=== PATIENT | female | born 1950 | race Caucasian/White ===

== ENCOUNTER → 2018-09-13 06:31 | Outpatient (CLI) | payer MEDICARE, SELFPAY ==
--- NOTE | 2018-09-13 06:35 | CA_ITS ---
PROCEDURE: 2-D M-mode and color Doppler study INDICATIONS FOR THE TEST: Chest pain COPD Heart Murmur Tobacco SmokingEX Palpitations Fatigue Syncope Edema HypertensionXDiabetes Mellitus Rheumatic Fever SOB ALEX Obesity HyperlipidemiaX Family History HD Additional History CAD,LVH PATIENT INFORMATION HEIGHT: 62 WEIGHT:167 GENDER: Female B/P:144/81 2-D/M-MODE INTERPRETATION: 2-D MEASUREMENTS OBSERVED VALUES IN CMS Right Ventricular Dimension (RVDd) 1.3 Interventricular Septum (Thickness)(IVsd) 1.0 Left Ventricular Internal Dimensions(LVIDd) 5.0 Left Ventricular Posterior Wall (Thickness)(LVPWd) .9 Aortic Root 2.5 Aortic Cusp Separation 1.4 Left Atrial Dimensions (LAD) 3.6 2D 1. The left atrium is mildly enlarged, left ventricle is normal size, mild concentric left ventricular hypertrophy, visually estimated ejection fraction 55% with no regional wall motion abnormality. 2. The right atrium and right ventricle are normal size and contractility. 3. The aortic valve is minimally thickened and fibrosed. 4. The mitral and tricuspid valvular grossly normal. 5. The pulmonic valve is poorly visualized. 6. No significant pericardial effusion noted. DOPPLER INTERROGATION: Doppler interrogation of the aortic, mitral and tricuspid valvular presence of mild mitral and tricuspid regurgitation, tricuspid regurgitation jet velocity is inadequate for calculation of the right ventricular systolic pressure, grade 1 diastolic dysfunction seen with tissue Doppler evidence of raised left atrial pressure. CONCLUSION: 1. Normal left ventricular size, mild concentric left ventricular hypertrophy, visually estimated ejection fraction 55% with no regional wall motion abnormality, grade 1 diastolic dysfunction seen with tissue Doppler evidence of raised left atrial pressure. 2. Mild mitral and tricuspid regurgitation 3. No significant pericardial effusion noted.
--- NOTE | 2018-09-13 06:35 | NM_ITS ---
CARDIOLITE [facility]PECT [facility]ESS: History: Coronary artery disease, hypertension, hyperlipidemia, family history Procedure: Patient exercised on Anastacio protocol 6 minutes and 8 seconds, resting heart rate was 65 bpm resting blood pressure 180/67, with exercise maximum heart rate achieved was 160 bpm which is equal to 85% of the maximum predicted heart rate, and the blood pressure was 182/90. Test was stopped due to chest pressure. Patient has adequate exercise capacity achieved 7mets of workload on treadmill, the blood pressure response to exercise was abnormal. Electrocardiogram: Resting electrocardiogram showed sinus rhythm nonspecific ST-T changes, with exercise there is 4 beats run of nonsustained VT seen, less than 1.[address] segment depression noted from the baseline EKG. The EKG portion of the exercise Myoview is nondiagnostic due to baseline abnormal EKG. Cardiac stress and resting SPECT images: Cardiac stress and resting SPECT images were obtained using technetium 99 Myoview 30.4 mCi stress and 9.7 mCi at rest. Gated SPECT further analysis of segmental wall motion and admission of the ejection fraction also done. Cardiac stress and resting SPECT images show uniform myocardial activity without segmental perfusion abnormality, computer derived ejection fraction is over 65% with no regional wall motion abnormality, right ventricle is normal size and contractility. Conclusion: 1. The EKG portion of the exercise Myoview is nondiagnostic due to baseline abnormal EKG, patient has adequate exercise capacity achieved 7mets of workload on treadmill, the blood pressure response to exercise was abnormal, test was stopped due to chest discomfort. 2. No scintigraphic evidence of reversible ischemia seen at this level of exercise, computer derived ejection fraction is over 65% with no regional wall motion abnormality, right ventricle is normal size and contractility. 3. Abnormal exercise Myoview study.
--- NOTE | 2018-09-13 07:55 | HMH.ITSHM ---
Current Home Medications as stated by this patient Shanelle Horton or sales representative consultant. []CARVEDILOL ATORVASTATIN CLOPIDOGREL ASA EMBREL METHOTREXATE FOLIC ACID PREDNISONE
== END ==
PROVIDERS: Visit Provider Internal Medicine
DX: I51.7 Cardiomegaly; I25.10 Atherosclerotic heart disease of native coronary artery without angina pectoris; E78.5 Hyperlipidemia, unspecified; Z87.891 Personal history of nicotine dependence
CPT/HCPCS: 78452; 93017; 93306; A9502

== ENCOUNTER → 2020-03-13 11:37 | Outpatient (CLI) | payer MEDICARE, SELFPAY ==
--- NOTE | 2020-03-13 | CA_ITS ---
APPROVED REPORT Exam: Pharmacologic Technologist: Yessenia Ruffin Ht: 5 ft 2 in Wt: 162 lbs BSA: 1.75 m2 HR: 56 bpm BP: 140/64 mmHg Indications: Chest pain Medical History Medications: Aspirin,,,,, Atorvastatin,,,,, Carvedilol,,,,, FOLIC ACID,,,,, Methotrexate,,,,, CloPIdogrel,,,,, Stress Test Details Test: LEXISCAN HR Resting HR: 66 bpm Max Heart Rate (APMHR): 152 bpm Max HR Achieved: 95 bpm Target HR (85% APMHR): 129 bpm % of APMHR: 62 Recovery HR: 74 bpm BP Resting BP: 140.0/64.0 mmHg Max BP: 159.0/81.0 mmHg Recovery BP: 152.0/80.0 mmHg ECG Clinical Exercise duration: 04:04 min Highest Stage Achieved: Exercise capacity: 1.0 METs Stress ECG Conclusion Resting ECG: Sinus bradycardia, low voltage QRS Symptoms: Chest heaviness Arrhythmias/Ectopy: None ST-T Changes: No significant changes. Conclusion: Unremarkable Lexiscan stress. Myoview images reported separately. Test Summary REST . . . . . . . Resting REST 06:22 . . 66 . 140/ 64 . . Stage 1 . . . . . . . Myoview Injected Stage 1 01:00 . . 90 . . . . Stage 2 01:00 . . 91 . 146/ 79 . . Stage 3 01:00 . . 82 . . . . Stage 4 01:00 . . 86 . 138/ 82 . . Stage 4 01:04 . . 85 . 138/ 82 . Stop exercise at 04:04 RECOVERY 01:00 . . 76 . 147/ 77 . . RECOVERY 02:00 . . 72 . 147/ 77 . . RECOVERY 03:00 . . 77 . 148/ 82 . . RECOVERY 04:00 . . 77 . 159/ 81 . . RECOVERY 04:58 . . 77 . 152/ 80 . . Electronically signed by : Kleber Brock, 03/13/2020 18:28:28
--- NOTE | 2020-03-13 11:38 | NM_ITS ---
APPROVED REPORT Exam: Nuclear Stress Test Indication: CAD, Chest pain, SOB, HTN, High cholesterol, Family history Patient Location: Outpatient Stress Tech: Yessenia Ruffin [place] Tech:Juana Pascal, ARRT, RT (R)(N) Ht: 5 ft 2 in Wt: 162 lbs Bra Size: DD HR: 56 bpm BP: 140/64 mmHg BSA: 1.75 m2 BMI: 29.6 History: CAD, Chest pain, SOB, HTN, High cholesterol, Family history Procedure: Patient received a 0.4 mg of intravenous Lexiscan, resting heart rate 56 bpm, resting blood pressure 140/64 mmHg, with Lexiscan maximum heart rate achived was 91 bpm which is Less than 85 % of the maximum predicted heart rate and blood pressure was 146/79 mmHg. Electrocardiogram Resting electrocardiogram showed sinus rhythm, with Lexiscan there is less than 1.[address] segment depression noted from the baseline EKG. The EKG portion of the Lexiscan Myoview is nondiagnostic. Cardiac Stress and Resting SPECT Images: Cardiac Stress and Resting SPECT images were obtained using technetium 99m Myoview 32.3 mCi stress and 10.47 mCi at rest. Gated SPECT for analysis of segmental wall motion and calculation of the ejection fraction also done. Cardiac stress and resting SPECT images show a mild fixed defect in the posterolateral wall with normal contractility and the gated SPECT is likely secondary to soft tissue attenuation, no reversible ischemia seen. Computer derived ejection fraction is over 65% with no regional wall motion abnormality, right ventricle is normal size and contractility. Conclusion: 1. The EKG portion of the Lexiscan Myoview is nondiagnostic. 2. No scintigraphic evidence of reversible ischemia seen, computer derived ejection fraction is over 65% with no regional wall motion abnormality, right ventricle is normal size and contractility. 3. Likely normal Lexiscan Myoview study. Electronically signed by : Kleber Brock, 03/13/2020 18:30:35
--- NOTE | 2020-03-13 13:13 | HMH.ITSHM ---
Current Home Medications as stated by this patient Shanelle Horton or sales representative business courses. PREDNISONE NITRO METHOTREXATE FOLIC ACID ETANERCEPT CLOPIDOGREL CARVEDILOL ATORVASTATIN ASA
== END ==
PROVIDERS: PCP Family Medicine; Visit Provider Nurse Practitioner Family
DX: I20.9 Angina pectoris, unspecified (principal); R06.02 Shortness of breath
CPT/HCPCS: 78452; 93017; A9502; J2785

== ENCOUNTER 2021-01-23 09:01 | Day surgery (SDC) | payer MEDICARE, SELFPAY ==
[2021-01-23] VITALS (10 sets, daily range): BP systolic 117–135; BP diastolic 63–83; PULSE 52–69; RESP 18–20; TEMP 37.1; O2SAT 92–97; BMI 29.6
--- NOTE | 2021-01-23 07:15 | IR_ITS ---
APPROVED REPORT Patient Location: Outpatient PROCEDURES Left heart catheterization Left ventriculogram Selective coronary angiogram INDICATION Known coronary disease, Accelerated angina pectoris Informed consent was obtained prior to the procedure. COMPLICATIONS None Estimated Blood Loss: Less than 10 mls TECHNIQUE One percent lidocaine used to anesthetize the right anterior aspect of the wrist. The right radial artery was accessed via the Seldinger technique. A 6 Hungarian sheath was placed in the right radial artery. 2.5 mg of verapamil, 800 mcg of nitroglycerin, 1mg Lidocaine and 5000 U Heparin were given through the arterial sheath. The trap catheter was also used to perform left heart catheterization, left ventriculogram and selective coronary angiogram. At the end of the procedure the sheath was removed good hemostasis was achieved using Traclet band, patient was transferred to the postop holding area in stable condition. ANGIOGRAPHIC RESULTS The left main artery Is an ostial 20 to 30% stenosis The left anterior descending artery Has proximal mild luminal irregularities with a mid vessel 40% stenosis. Initially the LAD had PERRY II flow which improved to PERRY-3 flow by the end of the procedure The circumflex artery Gives rise to a moderate to large ramus intermedius which has a proximal eccentric 30 to 40% stenosis. The circumflex artery itself has proximal 30% stenoses The right coronary artery Is a large dominant vessel with mild mid vessel 20 and 30% diffuse stenoses The LOYA ventriculogram reveals Hyperdynamic 70% The left ventricular end-diastolic pressure 20 mmHg IMPRESSION Coronary disease as described above with angiographic evidence of endothelial dysfunction Hyperdynamic ventricle as described above Mild elevated LVEDP PLAN 1. Maximize medical management. Patient should respond to long-acting nitrates and antianginal medications. If patient becomes recalcitrant to antianginal medication I would consider bringing her back and performing an FFR on the LAD and the circumflex artery however I feel it is unlikely that these 2 are producing angina and medical management should be completely exhausted prior to considering intervention 2. LDL less than 55 3. Avoidance of tobacco products 4. Aggressive risk factor modification Electronically signed by : Jacobo Perdue MD 01/23/2021 13:20:06
[2021-01-23 09:58] LABS: Coronavirus 19, PCR Not Detected (NotDetected); Influenza A, PCR Not Detected (NotDetected); Influenza B, PCR Not Detected (NotDetected)
[2021-01-23 10:01] LABS: Basophils # 0.1 K/mm3 (0-0.2); Basophils % 0.9 % (0.1-2.0); Eosinophils # 0.2 K/mm3 (0.0-0.4); Eosinophils % 2.1 % (0.1-12.0); Hematocrit 37.5 % (37.0-47.0); Hemoglobin 12.7 g/dL (12.2-16.2); Lymphocytes # 1.9 K/mm3 (0.7-4.5); Lymphocytes % 25.5 % (10-50); Mean Corpuscular HGB Conc 33.9 g/dL (31.8-35.4); Mean Corpuscular Hemoglobin 31.6 pg (27.0-31.2); Mean Corpuscular Volume 93.2 fl (81-99); Mean Platelet Volume 8.3 fl (7.4-10.4); Monocytes # 0.4 K/mm3 (0.1-1.0); Monocytes % 5.2 % (1.7-9.3); Neutrophils # 4.9 K/mm3 (1.8-7.8); Neutrophils % 66.4 % (37.0-80.0); Platelet Count 236 K/mm3 (142-424); Red Blood Count 4.02 M/mm3 (4.20-5.40); Red Cell Distribution Width 14.2 % (11.5-17.5); White Blood Count 7.4 K/mm3 (4.8-10.8)
[2021-01-23 10:04] LABS: Chloride 108 mmol/L (98-107); Sodium 140 mmol/L (136-145)
[2021-01-23 10:05] LABS: Potassium 4.1 mmoL/L (3.5-5.1)
[2021-01-23 10:07] LABS: Blood Urea Nitrogen 21 mg/dl (7-17); Creatinine Clearance Estimated 62 mL/min (50-200); Estimated Glomerular Filt Rate 99 ml/min (>60); GFR (African American) 120 ML/MIN (>60)
[2021-01-23 10:08] LABS: Anion Gap 12.1 mEq/L (5-15); Calcium 9.4 mg/dl (8.4-10.2); Carbon Dioxide 24 mmol/L (22.0-30.0); Glucose 96 mg/dl (74-100)
== END 2021-01-23 14:56 | disposition home or self-care (01) ==
LOC: CATHLAB 09:04
PROVIDERS: PCP Family Medicine; Visit Provider Internal Medicine
DX: E78.2 Mixed hyperlipidemia (principal); I11.9 Hypertensive heart disease without heart failure; I51.7 Cardiomegaly; I25.118 Atherosclerotic heart disease of native coronary artery with other forms of angina pectoris; Z79.01 Long term (current) use of anticoagulants; Z79.899 Other long term (current) drug therapy; Z20.822 Contact with and (suspected) exposure to COVID-19
CPT/HCPCS: 80048; 85025; 93458; 99152; C1725; C1769; J1644; Q9967; U0003

== ENCOUNTER → 2021-12-24 10:05 | Outpatient (CLI) | payer MEDICARE, SELFPAY ==
[2021-12-24 11:59] LABS: Alanine Aminotransferase 18 U/L (12-78); Albumin Level 4.5 g/dl (3.5-5.0); Alkaline Phosphatase 106 U/L (38-126); Aspartate Amino Transferase 27 U/L (14-36); Bilirubin,Indirect 0.7 mg/dL (0.0-0.9); Bilirubin,Total 0.7 mg/dl (0.2-1.3); Bilirubin,Unconjugated 0.6 mg/dL (0.0-1.1); Chol/HDL Ratio 2.7 (1-3.5); Cholesterol 153 mg/dl (140-200); HDL Cholesterol 56 mg/dl (40-60); Triglycerides 140 mg/dl (30-150); VLDL Cholesterol 28 mg/dL (0-40)
[2021-12-24 12:12] LABS: Direct LDL Cholesterol 65.74 mg/dL (100-129)
== END ==
PROVIDERS: PCP Family Medicine; Visit Provider Nurse Practitioner Family
DX: E78.2 Mixed hyperlipidemia (principal); I11.9 Hypertensive heart disease without heart failure; I25.10 Atherosclerotic heart disease of native coronary artery without angina pectoris; R01.1 Cardiac murmur, unspecified; R94.31 Abnormal electrocardiogram [ECG] [EKG]; E11.9 Type 2 diabetes mellitus without complications
CPT/HCPCS: 36415; 80061; 80076; 93306

== ENCOUNTER → 2023-01-05 07:39 | Outpatient (CLI) | payer MEDICARE, SELFPAY ==
--- NOTE | 2023-01-05 07:42 | CA_ITS ---
FINAL REPORT TECHNIQUE: Grayscale, color Doppler and duplex Doppler ultrasound of the kidneys, aorta and renal arteries was performed. Multiple velocities were measured. CLINICAL HISTORY: HTN,HLD COMPARISON: None FINDINGS: Aorta velocity: 90 cm/sec Right kidney: 10.3 cm. No hydronephrosis, mass, or stone. Right intrarenal RI: 0.5-0.68 Right renal artery velocity: 214 cm/sec. Right RAR (Renal artery-Aortic Ratio): 2.38 Left Kidney: 10.5 cm. No hydronephrosis, mass, or stone. Left intrarenal RI: 0.5-0.75 Left renal artery velocity: 211 cm/sec. Left RAR (Renal Artery-Aortic Ratio): 2.34 IMPRESSION: Less than 60% stenosis bilateral renal arteries. CT angiogram or postcontrast MR angiogram would be more sensitive for evaluation of possible renal artery stenosis. Reviewed, Interpreted and Dictated by Meghana Hartmann MD Transcribed by Maria Guadalupe Olmedo Authenticated and [facility]
--- NOTE | 2023-01-05 08:22 | US_ITS ---
FINAL REPORT TECHNIQUE: Ultrasound images of the kidneys and bladder were obtained. CLINICAL HISTORY: I20.9 - Angina pectoris, unspecified FINDINGS: The right kidney measures 10.3 cm in length. It is normal in echogenicity. There is no hydronephrosis. No renal stone or mass is seen. The left kidney measures 10.5 cm in length. It is normal in echogenicity. There is mild left hydronephrosis. No renal stone or mass is seen. The urinary bladder is unremarkable. IMPRESSION: Mild left hydronephrosis. Reviewed, Interpreted and Dictated by Meghana Hartmann MD Transcribed by Donya Escobar Authenticated and [facility]
== END ==
PROVIDERS: PCP Family Medicine; Visit Provider Physician Assistant
DX: E78.2 Mixed hyperlipidemia (principal); I10 Essential (primary) hypertension; I51.7 Cardiomegaly; R07.9 Chest pain, unspecified; R94.31 Abnormal electrocardiogram [ECG] [EKG]; I20.8 Other forms of angina pectoris
CPT/HCPCS: 76770; 93976

== ENCOUNTER → 2023-01-07 12:02 | Outpatient (CLI) | payer MEDICARE, SELFPAY ==
[2023-01-07 12:16] LABS: Basophils # 0.1 K/mm3 (0-0.2); Basophils % 0.7 % (0.1-2.0); Eosinophils # 0.2 K/mm3 (0.0-0.4); Eosinophils % 2.3 % (0.1-12.0); Hematocrit 42.7 % (37.0-47.0); Hemoglobin 13.7 g/dL (12.2-16.2); Lymphocytes # 1.7 K/mm3 (0.7-4.5); Lymphocytes % 23.5 % (10-50); Mean Corpuscular HGB Conc 32.1 g/dL (31.8-35.4); Mean Corpuscular Hemoglobin 30.7 pg (27.0-31.2); Mean Corpuscular Volume 95.8 fl (81-99); Mean Platelet Volume 8.8 fl (7.4-10.4); Monocytes # 0.3 K/mm3 (0.1-1.0); Monocytes % 4.4 % (1.7-9.3); Neutrophils % 69.1 % (37.0-80.0); Platelet Count 243 K/mm3 (142-424); Red Blood Count 4.45 M/mm3 (4.20-5.40); Red Cell Distribution Width 14.4 % (11.5-17.5); White Blood Count 7.3 K/mm3 (4.8-10.8)
[2023-01-07 13:25] LABS: Alanine Aminotransferase 25 U/L (12-78); Albumin Level 4.5 g/dl (3.5-5.0); Alkaline Phosphatase 91 U/L (38-126); Anion Gap 9.6 mEq/L (5-15); Aspartate Amino Transferase 29 U/L (14-36); Bilirubin,Indirect 0.6 mg/dL (0.0-0.9); Bilirubin,Total 0.6 mg/dl (0.2-1.3); Bilirubin,Unconjugated 0.7 mg/dL (0.0-1.1); Blood Urea Nitrogen 25 mg/dl (7-17); Calcium 9.3 mg/dl (8.4-10.2); Carbon Dioxide 29 mmol/L (22.0-30.0); Chloride 105 mmol/L (98-107); Chol/HDL Ratio 2.1 (1-3.5); Cholesterol 163 mg/dl (140-200); Estimated Glomerular Filt Rate 99 ml/min (>60); GFR (African American) 119 ML/MIN (>60); Glucose 97 mg/dl (74-100); HDL Cholesterol 78 mg/dl (40-60); Magnesium 1.8 mg/dl (1.6-2.3); Potassium 4.6 mmoL/L (3.5-5.1); Sodium 139 mmol/L (136-145); Total Protein,Serum 7.1 g/dl (6.3-8.2); Triglycerides 139 mg/dl (30-150); VLDL Cholesterol 28 mg/dL (0-40)
[2023-01-07 13:41] LABS: Free T4 (Free Thyroxine) 0.97 ng/dl (0.78-2.19)
[2023-01-07 13:58] LABS: Thyroid Stimulating Hormone 0.61 uIU/mL (0.465-4.68)
== END ==
PROVIDERS: Visit Provider Physician Assistant
DX: R07.9 Chest pain, unspecified; I20.8 Other forms of angina pectoris; I51.7 Cardiomegaly; E78.2 Mixed hyperlipidemia; R94.31 Abnormal electrocardiogram [ECG] [EKG]
CPT/HCPCS: 36415; 80048; 80061; 80076; 83735; 84439; 84443; 85025

== ENCOUNTER → 2023-03-17 12:35 | Outpatient (CLI) | payer MEDICARE, SELFPAY ==
--- NOTE | 2023-03-17 12:40 | CA_ITS ---
APPROVED REPORT EXAM: Comprehensive 2D, Doppler, and color-flow Echocardiogram Copyright Clerk: Pari Bolanos CRT Ht: 5 ft 2 in Wt: 148lbs BSA: 1.68 BP: 125/51 mmHg Indications: Pre-op knee, Abnormal ECG, Chest Pain, Murmur, Shortness of Breath, CAD, Hyperlipidemia, Hypertension/HDD 2D Dimensions LVOT 1.92 cm (M/F) 1.5-2.5 LA Volume 39.50 mL LA Volume Index 23.00 mL/m2 (M/F) 16-34 M-Mode Dimensions RVDd 3.14 cm (0.9-2.6) LA Diam 3.98 cm (1.9-4.0) LVDd 4.39 cm (3.5-5.7) Ao Diam 3.35 cm (2.0-3.7) LVDs 2.79 cm (3.5-5.7) IVSd 1.61 cm (0.6-1.1) PWd 0.54 cm (0.6-1.1) EF (Teich) 66.40% FS 36.40% EDV (Teich) 87.20 mL TAPSE 2.04 (<1.7) ESV (Teich) 29.30 mL LV Diastology E Decel Time 150.00 (160-240 msec) E/A Ratio 0.95 MED E' 6.20 (< 7 cm/sec) MED A' 8.30 cm/s E'/MED E' Ratio 10.58 (>14) LAT E' 33.10 (<10 cm/sec) LAT A' 41.20 cm/s E/LAT E' Ratio 1.98 (>14) Aortic Valve AO Peak GR. 5.20 mmHg Mitral Valve MV E Max Uli. 66.00 (40-130 cm/s) MV A Velocity 69.00 (40-130 cm/s) E/A Ratio 0.95 MV Decel. Time 150.00 (160-240 ms) MV PHT 44.00 ms Pulmonary Valve PV Peak Velocity 136.00 (50-150 cm/s) Tricuspid Valve TR P. Velocity 262.00 cm/s RAP Estimate 10.00 mmHg RVSP 37.60 mmHg Left Ventricle The left ventricle is normal size. The left ventricular systolic function is normal. The left ventricular ejection fraction is within the normal range. There is increased LV wall thickness. There is normal LV segmental wall motion. The left ventricular diastolic function is normal. LVEF is 55-60%. Right Ventricle Right ventricle is mildly dilated. The right ventricular systolic function is normal. Atria The left atrium size is normal. The right atrium size is normal. There is no Doppler evidence of interatrial shunt. Aortic Valve Aortic valve is mildly thickened. There is no aortic valvular stenosis. No aortic regurgitation is present. Mitral Valve The mitral valve is normal in structure. No evidence of mitral valve stenosis. Trace mitral regurgitation. Tricuspid Valve The tricuspid valve leaflets are thin and pliable Mild tricuspid regurgitation. RVSP is 20 mmHg + RA pressure. Pulmonic Valve The pulmonary valve is normal in structure. Trace pulmonic regurgitation. Great Vessels The aortic root is normal in size. The ascending aorta is normal in size. The IVC is not well visualized. Pericardium There is no pericardial effusion. Other Information Study Quality: Fair Conclusion Normal biventricular systolic function. Mild RV dilation. No significant valvular stenosis or regurgitation. Electronically signed by : Samantha Love MD 03/17/2023 19:15:06
== END ==
PROVIDERS: Visit Provider Physician Assistant
DX: E78.2 Mixed hyperlipidemia (principal); I11.9 Hypertensive heart disease without heart failure; I25.10 Atherosclerotic heart disease of native coronary artery without angina pectoris; R01.1 Cardiac murmur, unspecified; R94.31 Abnormal electrocardiogram [ECG] [EKG]
CPT/HCPCS: 93306

== ENCOUNTER 2024-03-08 10:43 | Outpatient (CLI) | payer MEDICARE, SELFPAY ==
[2024-03-08 11:21] LABS: Basophils % 0.5 % (0.1-2.0); Eosinophils % 0.7 % (0.1-12.0); Hematocrit 39.7 % (37.0-47.0); Hemoglobin 12.5 g/dL (12.2-16.2); Lymphocytes # 1.4 K/mm3 (0.7-4.5); Lymphocytes % 27.4 % (10-50); Mean Corpuscular HGB Conc 31.5 g/dL (31.8-35.4); Mean Corpuscular Hemoglobin 33.2 pg (27.0-31.2); Mean Corpuscular Volume 105.5 fl (81-99); Mean Platelet Volume 7.8 fl (7.4-10.4); Monocytes # 0.3 K/mm3 (0.1-1.0); Neutrophils # 3.4 K/mm3 (1.8-7.8); Neutrophils % 65.3 % (37.0-80.0); Platelet Count 263 K/mm3 (142-424); Red Blood Count 3.76 M/mm3 (4.20-5.40); Red Cell Distribution Width 14.8 % (11.5-17.5); White Blood Count 5.2 K/mm3 (4.8-10.8)
[2024-03-08 11:56] LABS: Alanine Aminotransferase 27 U/L (12-78); Albumin Level 4.5 g/dl (3.5-5.0); Alkaline Phosphatase 79 U/L (38-126); Anion Gap 8.2 mEq/L (5-15); Aspartate Amino Transferase 37 U/L (14-36); Bilirubin,Direct 0.2 mg/dl (0.0-0.4); Bilirubin,Indirect 0.7 mg/dL (0.0-0.9); Bilirubin,Total 0.9 mg/dl (0.2-1.3); Bilirubin,Unconjugated 0.7 mg/dL (0.0-1.1); Blood Urea Nitrogen 26 mg/dl (7-17); Calcium 9.5 mg/dl (8.4-10.2); Carbon Dioxide 27 mmol/L (22.0-30.0); Chloride 108 mmol/L (98-107); Chol/HDL Ratio 2.4 (1-3.5); Cholesterol 156 mg/dl (140-200); Estimated Glomerular Filt Rate 98 ml/min (>60); GFR (African American) 119 ML/MIN (>60); Glucose 101 mg/dl (74-100); HDL Cholesterol 65 mg/dl (40-60); Potassium 4.2 mmoL/L (3.5-5.1); Sodium 139 mmol/L (136-145); Total Protein,Serum 6.7 g/dl (6.3-8.2); Triglycerides 140 mg/dl (30-150); VLDL Cholesterol 28 mg/dL (0-40)
[2024-03-08 12:07] LABS: Direct LDL Cholesterol 54.63 mg/dL (100-129)
[2024-03-08 12:27] LABS: Thyroid Stimulating Hormone 0.95 uIU/mL (0.465-4.68)
== END 2024-03-08 23:59 | disposition home or self-care (01) ==
PROVIDERS: Visit Provider Nurse Practitioner
DX: R07.89 Other chest pain (principal); R68.84 Jaw pain; R40.0 Somnolence; E78.2 Mixed hyperlipidemia; I11.9 Hypertensive heart disease without heart failure; R94.31 Abnormal electrocardiogram [ECG] [EKG]; I25.10 Atherosclerotic heart disease of native coronary artery without angina pectoris
CPT/HCPCS: 36415; 80048; 80061; 80076; 84439; 84443; 85025

== ENCOUNTER 2024-03-10 06:28 | Outpatient (CLI) | payer MEDICARE, SELFPAY ==
--- NOTE | 2024-03-10 | CA_ITS ---
APPROVED REPORT Exam: Pharmacologic Technologist: Priscilla Marcus, Ht: 5 ft 2 in Wt: 148 lbs BSA: 1.68 m2 HR: 59 bpm BP: 143/57 mmHg Medical History Medications: Aspirin,,,,, Atorvastatin,,,,, Carvedilol,,,,, FOLIC ACID,,,,, Prednisone,,,,, Nitroglycerin,,,,, Ranolazine ER,,,,, RInvoq,,,,, Methotrexate sodium,,,,, Stress Test Details Test: LEXISCAN Reason for pharmacologic stress test: physical limitation. HR Resting HR: 60 bpm Max Heart Rate (APMHR): 148 bpm Max HR Achieved: 94 bpm Target HR (85% APMHR): 126 bpm % of APMHR: 64 Recovery HR: 75 bpm BP Resting BP: 143.0/57.0 mmHg Max BP: 169.0/86.0 mmHg Recovery BP: 150.0/75.0 mmHg ECG Resting ECG: NSR, low voltage Stress ECG: No significant ST changes Arrhythmia: None Clinical Exercise duration: 04:09 min Highest Stage Achieved: Exercise capacity: 1.0 METs Stress ECG Conclusion Symptoms: chest pressure (mild-severe) radiated to both arms with nausea. Arrhythmias/Ectopy: None. ST-T Changes: None. Conclusion: Unremarkable ECG portion of Lexiscan stress test. Myoview images reported separately. Test Summary REST . . . . . . . Resting REST 02:48 . . 60 . 143/ 57 . . Stage 1 01:00 . . 86 . . . . Stage 2 01:00 . . 88 . 153/ 74 . . Stage 3 01:00 . . 89 . 169/ 86 . . Stage 4 01:00 . . 88 . 167/ 85 . . Stage 4 01:09 . . 91 . 167/ 85 . Stop exercise at 04:09 RECOVERY 01:00 . . 77 . . . . RECOVERY 02:00 . . 80 . 160/ 83 . . RECOVERY 03:00 . . 74 . 150/ 75 . . Electronically signed by : Samantha Love MD 03/10/2024 13:39:34
--- NOTE | 2024-03-10 06:37 | NM_ITS ---
APPROVED REPORT Exam: Nuclear Stress Test Indication: chest pain..fatigue Patient Location: Outpatient Stress Tech: Priscilla Faith [place] Tech:Maci Grace POLLOJuvenal RT(R)(N) Ht: 5 ft 2 in Wt: 148 lbs Bra Size: 42dd HR: 60 bpm BP: 143/57 mmHg BSA: 1.68 m2 TID: 1.16 BMI: 27.0 History: chest pain..fatigue Procedure: Patient received 0.4 mg of intravenous Lexiscan, resting heart rate 60 bpm, resting blood pressure 143/57 mmHg, with Lexiscan maximum heart rate achieved was 94 bpm which is 85 % of the maximum predicted heart rate and blood pressure was 169/86 mmHg. Cardiac Stress and Resting SPECT Images: Cardiac Stress and Resting SPECT images were obtained using technetium 99m Myoview 31.1 mCi stress and 10.69 mCi at rest. Resting and stress imaging in supine and prone positions demonstrate no evidence of fixed or reversible perfusion defects. Gated imaging demonstrates normal global and regional LV systolic function. LVEF is calculated at 65%. Conclusion: No evidence of fixed or reversible perfusion defects. Gated imaging demonstrates normal global and regional LV systolic function. LVEF is calculated at 65%. Electronically signed by : Samantha Love MD 03/10/2024 13:40:23
[2024-03-10] MEDS: SODIUM CHLORIDE 0.9% 10ML SYR (RAD ONLY) 10 ML IV ×2 (06:55→08:40)
[2024-03-10] MEDS: REGADENOSON 0.4MG/5ML SYRINGE 0.4 MG IV (08:40)
[2024-03-10] MEDS: ISOTOPE MYOVIEW (PER STUDY) 1 DOSE IV (11:52)
== END 2024-03-10 23:59 | disposition home or self-care (01) ==
LOC: RAD 06:29
PROVIDERS: PCP Family Medicine; Visit Provider Nurse Practitioner
DX: R07.9 Chest pain, unspecified (principal); R68.84 Jaw pain; R40.0 Somnolence; E78.2 Mixed hyperlipidemia
CPT/HCPCS: 78452; 93017; 93018; A9502; J2785

== ENCOUNTER 2024-03-21 09:05 | Outpatient (CLI) | payer MEDICARE, SELFPAY ==
--- NOTE | 2024-03-21 09:09 | CA_ITS ---
APPROVED REPORT EXAM: Comprehensive 2D, Doppler, and color-flow Echocardiogram Lead Java Developer Architect: Pari Bolanos CRT Ht: 5 ft 2 in Wt: 148lbs BSA: 1.68 BP: 110/55 mmHg Indications: Chest Pain, Murmur, Hyperlipidemia, Hypertension/HDD, ex smoker 2D Dimensions Left Atrium 3.98 cm LA Volume 51.00 mL LVOT 1.94 cm (M/F) 1.5-2.5 LA Volume Index 30.40 mL/m2 (M/F) 16-34 EF AP2 51.5 % GL Strain -10.9 % M-Mode Dimensions RVDd 2.65 cm (0.9-2.6) LVDd 4.66 cm (3.5-5.7) Ao Diam 3.10 cm (2.0-3.7) LVDs 2.83 cm (3.5-5.7) IVSd 1.90 cm (0.6-1.1) PWd 0.75 cm (0.6-1.1) EF (Teich) 69.80% FS 39.30% EDV (Teich) 100.30 mL TAPSE 1.79 (<1.7) ESV (Teich) 30.30 mL LV Diastology E Decel Time 164 (160-240 msec) E/A Ratio 0.92 MED E' 7.3 (>= 7 cm/sec) MED A' 8.90 cm/s E'/MED E' Ratio 7.68 (<= 14) LAT E' 5.1 (>= 10 cm/sec) LAT A' 7.90 cm/s E/LAT E' Ratio 11.00 (<= 14) Aortic Valve AoV Peak Uli. 125.0 (50-130 cm/s) AI PHT 526.00 ms AO Peak GR. 6.20 mmHg Mitral Valve MV E Max Uli. 56.0 (40-130 cm/s) MV A Velocity 61.0 (40-130 cm/s) E/A Ratio 0.92 MV Decel. Time 164 (160-240 ms) Tricuspid Valve TR P. Velocity 258.00 cm/s RAP Estimate 10.00 mmHg RVSP 36.70 mmHg Left Ventricle The left ventricle is normal size. The left ventricular systolic function is normal. The left ventricular ejection fraction is within the normal range. There is normal left ventricular wall thickness. There is normal LV segmental wall motion. The left ventricular diastolic function is normal. LVEF is 55%. Right Ventricle Right ventricle is mildly dilated. The right ventricular systolic function is normal. Atria Left atrium is mildly dilated. Right atrium is mildly dilated. There is no Doppler evidence of interatrial shunt. Aortic Valve The aortic valve opens well. There is no aortic valvular stenosis. Trace aortic regurgitation. Mitral Valve The mitral valve is normal in structure. No evidence of mitral valve stenosis. Mild to moderate mitral regurgitation. Tricuspid Valve The tricuspid valve leaflets are thin and pliable. Trace tricuspid regurgitation. RVSP is 20-25 mmHg. Pulmonic Valve The pulmonary valve is normal in structure. Trace pulmonic regurgitation. Great Vessels The aortic root is normal in size. The ascending aorta is normal in size. IVC is normal in size and collapses >50% with inspiration. Pericardium There is no pericardial effusion. Other Information Study Quality: Fair Conclusion Normal biventricular systolic function. Mild RV dilation. Mild biatrial dilation. Mild to moderate MR. Electronically signed by : Samantha Love MD 03/21/2024 11:59:58
== END 2024-03-21 23:59 | disposition home or self-care (01) ==
PROVIDERS: PCP Family Medicine; Visit Provider Nurse Practitioner
DX: R07.89 Other chest pain (principal); I51.7 Cardiomegaly; I34.0 Nonrheumatic mitral (valve) insufficiency
CPT/HCPCS: 93306

== ENCOUNTER 2024-08-26 09:51 | Outpatient (CLI) | payer MEDICARE, SELFPAY ==
--- NOTE | 2024-08-26 09:54 | CA_ITS ---
APPROVED REPORT EXAM: Comprehensive 2D, Doppler, and color-flow Echocardiogram [employer] Helicopter Aircrewman: ORLANDO Altamirano, RVS Ht: 5 ft 2 in Wt: 149lbs BSA: 1.69 BP: 110/55 mmHg Indications: Edema, RA, Murmur, Ex-smoker, HTN, HLD 2D Dimensions Left Atrium 2.93 cm F: 2.7 - 3.8 LA Volume 68.90 mL LA Volume Index 40.710794 mL/m2 (M/F) 16-34 M-Mode Dimensions RVDd 2.43 cm (0.9-2.6) LA Diam 4.35 cm (1.9-4.0) LVDd 4.97 cm (3.5-5.7) LVDs 3.42 cm (3.5-5.7) IVSd 0.99 cm (0.6-1.1) PWd 0.91 cm (0.6-1.1) EF (Teich) 58.70% EPSs 0.34 cm FS 31.20% EDV (Teich) 116.60 mL TAPSE 2.22 (<1.7) ESV (Teich) 48.10 mL LV Diastology E Decel Time 188 (160-240 msec) E/A Ratio 1.12 MED A' 10.20 cm/s LAT A' 10.40 cm/s Aortic Valve LENARD Index 1.39 cm2/m2 AoV Peak Uli. 124.0 (50-130 cm/s) AO Peak GR. 6.10 mmHg AO Mean GR. 3.10 (<5 mmHg) AO VTI 28.7 (18-25 cm) LENARD (VTI) 2.41 (2.5-4.5 cm2) Mitral Valve MV A Velocity 81.0 (40-130 cm/s) E/A Ratio 1.12 Tricuspid Valve TR P. Velocity 237.00 cm/s RAP Estimate 10.00 mmHg RVSP 32.50 mmHg Left Ventricle The left ventricle is normal size. The left ventricular systolic function is normal. The left ventricular ejection fraction is within the normal range. There is increased LV wall thickness. There is normal LV segmental wall motion. Transmitral Doppler flow pattern suggests impaired LV relaxation. LVEF is 55%. Right Ventricle The right ventricle is normal size. The right ventricular systolic function is normal. Atria Left atrium is mildly dilated. Right atrium is mildly dilated. There is no Doppler evidence of interatrial shunt. Aortic Valve The aortic valve is mildly thickened. There is no aortic valvular stenosis. Mild aortic regurgitation. Mitral Valve The mitral valve leaflets are mildly thickened. Mild mitral regurgitation. No evidence of mitral valve stenosis. Tricuspid Valve Tricuspid valve is grossly normal in structure and function. Mild tricuspid regurgitation. RVSP is 20-25 mmHg. Pulmonic Valve The pulmonary valve is normal in structure. Trace pulmonic regurgitation. Great Vessels The aortic root is normal in size. IVC is normal in size and collapses >50% with inspiration. Pericardium There is no pericardial effusion. Other Information Study Quality: Fair Conclusion Normal biventricular systolic function. Mild biatrial dilation. Mild AI, mild MR, mild TR. Electronically signed by : Samantha Love MD 09/05/2024 12:19:04
== END 2024-08-26 23:59 | disposition home or self-care (01) ==
LOC: RT 09:53
PROVIDERS: PCP Family Medicine; Visit Provider Internal Medicine
DX: I51.7 Cardiomegaly (principal); I34.0 Nonrheumatic mitral (valve) insufficiency; I35.1 Nonrheumatic aortic (valve) insufficiency; I36.1 Nonrheumatic tricuspid (valve) insufficiency; R60.0 Localized edema; R07.89 Other chest pain
CPT/HCPCS: 93306